=== PATIENT | male | born 2000 | race Caucasian/White ===

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

== ENCOUNTER 2023-12-23 10:27 | Emergency (ER) | payer BC, OTHER, SELFPAY ==
[~2023-12-23] VITALS: Ht 180.3 cm; Wt 97.3 kg
[2023-12-23 10:30] VITALS: TEMP 98.2; O2SAT 99
[2023-12-23 11:16] LABS: BASO % 0.2 % (0.0-1.0); EOS # 0.3 10^3/uL (0.0-0.5); EOS % 3.6 % (0.0-3.0); HEMATOCRIT 42.9 % (42.0-52.0); HEMOGLOBIN 14.8 g/dl (13.5-17.5); LYMPH # 2.3 10^3/uL (1.5-5.0); MEAN CORPUSCULAR HEMOGLOBIN 30.5 pg (27.0-33.0); MEAN CORPUSCULAR HGB CONC 34.5 g/dl (32.0-36.5); MEAN CORPUSCULAR VOLUME 88.5 fl (80.0-96.0); MONO # 0.7 10^3/uL (0.0-0.8); MONO % 7.8 % (2.0-8.0); NEUTROPHILS # 5.2 10^3/uL (1.5-8.5); NEUTROPHILS % 61.2 % (36.0-66.0); PLATELET COUNT, AUTOMATED 273 10^3/uL (150-450); RED BLOOD COUNT 4.85 10^6/uL (4.30-6.10); WHITE BLOOD COUNT 8.4 10^3/uL (4.0-10.0)
[2023-12-23 11:29] LABS: INR 0.91; PARTIAL THROMBOPLASTIN TIME 28.6 SECONDS (24.8-34.2)
[2023-12-23 11:43] LABS: LIPASE 32 U/L (12-53)
[2023-12-23 11:45] LABS: AMYLASE 36 U/L (30-118)
[2023-12-23 11:46] LABS: ALBUMIN 4.3 G/DL (3.2-5.2); ALKALINE PHOSPHATASE 92 U/L (46-116); ALT/SGPT 35 U/L (7.0-40); AST/SGOT 23 U/L (<34); BILIRUBIN,DIRECT 0.1 MG/DL (<0.4); BILIRUBIN,TOTAL 0.4 MG/DL (0.3-1.2); BLOOD UREA NITROGEN 12 MG/DL (9-23); CALCIUM LEVEL 9.7 MG/DL (8.5-10.1); CARBON DIOXIDE LEVEL 26 MMOL/L (20-31); CHLORIDE LEVEL 107 MMOL/L (98-107); CREATININE FOR GFR 0.69 MG/DL (0.70-1.30); GLOMERULAR FILTRATION RATE > 60.0 (>60); GLUCOSE, FASTING 109 MG/DL (60-100); SODIUM LEVEL 138 MMOL/L (136-145); TOTAL PROTEIN 7.2 G/DL (5.7-8.2)
[2023-12-23] MEDS ORDERED: ISOVUE-370 76% 100ML VIAL As Ordered ONE (12:39)
[2023-12-23 14:21] VITALS: BP 150/74
== END 2023-12-23 14:22 | disposition home or self-care (01) ==
LOC: M ED 10:50
DX: R10.31 Right lower quadrant pain (principal); F10.10 Alcohol abuse, uncomplicated
CPT/HCPCS: 36415; 74177; 80048; 80076; 81001; 82150; 83605; 83690; 85025; 85610; 85730; 99283; Q9967